=== PATIENT | female | born 1990 | race American Indian/Alaskan Native ===

== ENCOUNTER 2017-01-28 12:45 | Emergency (ER) | payer SELFPAY ==
[2017-01-28 13:51] VITALS: BP 154/93
--- NOTE | 2017-01-28 15:41 | Emergency Department Report ---
Entered by SPENSER ACE, acting as scribe for MARK KRISHNAN PA. ED Eye Problem HPI - General Chief complaint: Eye Problems Stated complaint: LT EYE RED Time Seen by Provider: 01/28/17 15:09 Source: patient Mode of arrival: Ambulatory Limitations: No Limitations - History of Present Illness Initial comments: 26 y/o female patient presents today with eye redness/ irritation that started 2 days ago. Associated Sx include eye itching that started 2 weeks ago, green drainage x2 days, mild eye blurriness but pt denies eye pain, fever, N/V, abd pain and chest pain. Pt notes having seasonal allergies. She also has a positive sick contact, a co-worker that acquired pink eye last week. MD chief complaint: eye redness -: days(s) (2) Onset Description: gradual Location: both eyes Place: work (potentially acquired disease from work) If Injury: none Eye Symptoms: redness (green), itching, discharge Severity: mild Consistency: constant Associated Symptoms: denies: nausea/vomiting, fever Treatments Prior to Arrival: other (benadryl) - Related Data Previous Rx's Medication Instructions Recorded Last Taken Type Cetirizine HCl [ZyrTEC] 10 mg PO QDAY #30 capsule 01/28/17 Unknown Rx Fluticasone [Flonase] 1 spray NS QDAY #1 bottle 01/28/17 Unknown Rx Levofloxacin [levofloxacin OPTH] 1 - 2 drop OP Q2HWA #1 bottle 01/28/17 Unknown Rx Allergies Allergy/AdvReac Type Severity Reaction Status Date / Time codeine Allergy Nausea Verified 01/28/17 13:44 ED Review of Systems Comment: All other systems reviewed and negative Constitutional: denies: chills, fever Eyes: eye discharge (green), vision change (vision is mildly affected ). denies : eye pain Respiratory: denies: cough, shortness of breath Cardiovascular: denies: chest pain Gastrointestinal: denies: abdominal pain, nausea, vomiting ED Past Medical Hx - Past Medical History Previous Medical History?: Yes Additional medical history: Allergies, Bronchitis - Surgical History Past Surgical History?: Yes Additional Surgical History: Left shoulder, [place] teeth - Social History Smoking Status: Never Smoker Substance Use Type: None - Medications Home Medications: Home Medications Medication Instructions Recorded Confirmed Last Taken Type Cetirizine HCl [ZyrTEC] 10 mg PO QDAY #30 capsule 01/28/17 Unknown Rx Fluticasone [Flonase] 1 spray NS QDAY #1 bottle 01/28/17 Unknown Rx Levofloxacin [levofloxacin OPTH] 1 - 2 drop OP Q2HWA #1 bottle 01/28/17 Unknown Rx ED Physical Exam - General Limitations: No Limitations - Other Other exam information: GENERAL: The patient is well-developed and well-nourished. Patient is in NAD. HEAD: Normocephalic. Atraumatic. EYES: Extraocular motions are intact, PERRL. Bilateral conjuctival injection noted, minimal left eyelid edema, clear drainage noted bilaterally. EARS: TM clear bilaterally. NOSE: Normal nasal mucosa, positive for clear drainage. THROAT: No swelling, edema or exudates. NECK: Supple, nontender, without lymphadenopathy. CHEST/LUNGS: Clear to auscultation throughout. HEART/CARDIOVASCULAR: Regular rate and rhythm. No murmurs, rubs or gallops. ABDOMEN: Abdomen is soft, nontender. Bowel sounds normoactive. No guarding or rebound tenderness. EXTREMITIES: Peripheral pulses intact. Capillary refill less than 2 seconds. NEURO: Alert and oriented x 3. Normal gait. CN II-XII intact. Symmetrical strength and sensation. Reflexes 2+ throughout. Cerebellar testing normal. GCS score of 15. ED Course Vital Signs 01/28/17 13:45 Temperature 98.9 F Pulse Rate 90 Respiratory 18 Rate Blood Pressure 154/93 O2 Sat by Pulse 100 Oximetry ED Medical Decision Making - Lab Data Vital Signs 01/28/17 13:45 Temperature 98.9 F Pulse Rate 90 Respiratory 18 Rate Blood Pressure 154/93 O2 Sat by Pulse 100 Oximetry - Medical Decision Making 26 y/o female patient presents today with eye redness/ irritation that started 2 days ago. Patient is in no acute distress at this time. She will be discharged home and is encouraged to follow up with a primary care provider. She will be sent home on levofloxacin optic drops, Flonase and Zyrtec and is encouraged to return to the emergency room for any worsening symptoms. ED Disposition Clinical Impression: Conjunctivitis Qualifiers: Conjunctivitis type: acute Acute conjunctivitis type: unspecified Laterality: bilateral Qualified Code(s): H10.33 - Unspecified acute conjunctivitis, bilateral Allergic rhinitis Qualifiers: Allergic rhinitis seasonality: seasonal Allergic rhinitis trigger: unspecified Qualified Code(s): J30.2 - Other seasonal allergic rhinitis Disposition: DISCHARGED TO HOME OR SELFCARE Is pt being admited?: No Does the pt Need Aspirin: No Condition: Stable Instructions: Conjunctivitis (ED), Allergic Rhinitis (ED) Additional Instructions: Follow-up with primary care provider. Return to the emergency department if symptoms worsen. Prescriptions: Levofloxacin [levofloxacin OPTH] 1 - 2 drop OP Q2HWA #1 bottle Cetirizine HCl [ZyrTEC] 10 mg PO QDAY #30 capsule Fluticasone [Flonase] 1 spray NS QDAY #1 bottle Referrals: PRIMARY CAREMD [Primary Care Provider] - 3-5 Days CHUY PAVON MD [Staff Physician] - 3-[facility] - [facility] Days Forms: Work/School Release Form(ED) Time of Disposition: 15:40 This documentation as recorded by the MALKA carrasquillo RYAN,accurately reflects the service I personally performed and the decisions made by ARIELLA angulo NATASHA, PA.
== END 2017-01-28 16:12 | disposition home or self-care (01) ==
LOC: ED 12:45
DX: H10.33 Unspecified acute conjunctivitis, bilateral (principal); J30.2 Other seasonal allergic rhinitis
CPT/HCPCS: 99283

== ENCOUNTER 2017-11-19 04:24 | Emergency (ER) | payer SELFPAY ==
[2017-11-19] MEDS ORDERED: MOTRIN PO ONE (06:19)
[2017-11-19 07:09] LABS: Bacteria,Urine 1+ /HPF (Negative); Bilirubin,Urine SM (Negative); Blood,Urine NEG (Negative); Color,Urine Amber (Yellow); HCG Qualitative,Urine Negative (Negative); Mucus,Urine 3+ /HPF; Nitrite,Urine NEG (Negative)
[2017-11-19 07:13] LABS: Ictotest,Urine Negative (Negative)
[2017-11-19] MEDS ORDERED: DECADRON IV ONE (08:29)
[2017-11-19] MEDS ORDERED: BACTRIM DS PO ONE (08:29)
--- NOTE | 2017-11-19 08:33 | XRay Report ---
FINAL REPORT EXAM: XR CHEST ROUTINE 2V HISTORY: cough and fever TECHNIQUE: PA and lateral chest radiographs PRIORS: None. FINDINGS: No mediastinal shift. Cardiac silhouette is not enlarged. No pneumothorax, effusion, or focal pulmonary opacity. No acute skeletal finding. IMPRESSION: No focal pulmonary opacity.
--- NOTE | 2017-11-19 08:36 | Emergency Department Report ---
HPI - General Chief Complaint: Upper Respiratory Infection Time Seen by Provider: 11/19/17 08:12 - HPI HPI: This is a 27-year-old female presents to the emergency department with a complaint of a cough, chest congestion and a fever. It started about 5 days ago. The patient has not taken anything for her symptoms had visitation. She says that the cough is productive and she is bringing up thick mucus. She denies any past medical history and is not a smoker. She currently lives in [place] but is transitioning to [place] and therefore does not have any local primary care physicians. No sick contacts at home. She denies any ear pain, sore throat, rash, dysuria. ED Past Medical Hx - Past Medical History Previous Medical History?: No Additional medical history: Obesity, Bronchitis - Surgical History Additional Surgical History: Left shoulder, - Social History Smoking Status: Never Smoker Substance Use Type: None - Medications Home Medications: Home Medications Medication Instructions Recorded Confirmed Last Taken Type Cetirizine HCl [ZyrTEC] 10 mg PO QDAY #30 capsule 01/28/17 Unknown Rx Fluticasone [Flonase] 1 spray NS QDAY #1 bottle 01/28/17 Unknown Rx Levofloxacin [levofloxacin OPTH] 1 - 2 drop OP Q2HWA #1 bottle 01/28/17 Unknown Rx ALBUTEROL Inhaler [ProAir HFA 2 puff IH QID PRN #1 inhalation 11/19/17 Unknown Rx Inhaler] Benzonatate [Tessalon Perles] 100 mg PO Q8HR PRN #20 capsule 11/19/17 Unknown Rx Sulfamethoxazole/Trimethoprim 1 each PO BID #10 tablet 11/19/17 Unknown Rx [Bactrim DS TAB] ED Review of Systems ROS: Stated complaint: COUGH, FEVER,CHEST CONGESTION Other details as noted in HPI Comment: All other systems reviewed and negative Constitutional: chills, fever Eyes: denies: eye pain, eye discharge, vision change ENT: denies: ear pain, throat pain Respiratory: cough. denies: shortness of breath Cardiovascular: denies: chest pain, palpitations Gastrointestinal: denies: abdominal pain, nausea, diarrhea Genitourinary: denies: urgency, dysuria, discharge Musculoskeletal: denies: back pain, joint swelling, arthralgia Skin: denies: rash, lesions Neurological: denies: headache, weakness, paresthesias Physical Exam - Physical Exam Vital Signs: Vital Signs 11/19/17 11/19/17 05:44 06:11 Temperature 99.6 F 99.6 F Pulse Rate 108 H 111 H Respiratory 18 16 Rate Blood Pressure 135/83 135/83 O2 Sat by Pulse 94 98 Oximetry Physical Exam: GENERAL: The patient is well-developed well-nourished. HENT: Normocephalic. Atraumatic. Patient has moist mucous membranes. EYES: Extraocular motions are intact. Pupils equal reactive to light bilaterally. NECK: Supple. Trachea is midline. CHEST/LUNGS: Clear to auscultation. A productive sounding cough with a slight wheeze to it as her during examination. No tachypnea or accessory muscle use. There is no respiratory distress noted. HEART/CARDIOVASCULAR: Regular. There is no tachycardia. There is no murmur. ABDOMEN: Abdomen is soft, nontender. Patient has normal bowel sounds. Obese habitus. SKIN: Skin is warm and dry. NEURO: The patient is awake, alert, and oriented. The patient is cooperative. The patient has no focal neurologic deficits. The patient has normal speech. MUSCULOSKELETAL: There is no tenderness or deformity. There is no limitation range of motion. There is no evidence of acute injury. ED Course Vital Signs 11/19/17 11/19/17 05:44 06:11 Temperature 99.6 F 99.6 F Pulse Rate 108 H 111 H Respiratory 18 16 Rate Blood Pressure 135/83 135/83 O2 Sat by Pulse 94 98 Oximetry ED Medical Decision Making - Radiology Data Radiology results: image reviewed interpreted by me: Chest x-ray does not show any acute process. There are no pleural effusions, obvious pneumonia and there is no pneumothorax. - Medical Decision Making Patient presents with a five-day history of cough, chest congestion and fever. She does not appear to be in any distress. Chest x-ray does not show any obvious pneumonia although there might be a developing infiltrate or opacity to the right lower lung. She has positive for influenza but we will not treat with Tamiflu as her symptoms started about 5 days ago and therefore she is outside of the window that this is indicated for treatment. Urinalysis may not be the cleanest sample but does show some white blood cells with small amount of leukocyte esterase. Therefore the patient will be treated with some Bactrim. She was given albuterol and Tessalon Perles for home and one dose of Decadron here. She was given multiple referrals for primary care. She will return to the ER with any worsening of her symptoms or any acute distress. Vital signs stable throughout ED course. - Differential Diagnosis influenza, pneumonia, URI, UTI Critical Care Time: No Critical care attestation.: If time is entered above; I have spent that time in minutes in the direct care of this critically ill patient, excluding procedure time. ED Disposition Clinical Impression: Influenza A Fever Qualifiers: Fever type: unspecified Qualified Code(s): R50.9 - Fever, unspecified UTI (urinary tract infection) Qualifiers: Urinary tract infection type: acute cystitis Hematuria presence: without hematuria Qualified Code(s): N30.00 - Acute cystitis without hematuria Disposition: TO HOME OR SELFCARE Is pt being admited?: No Condition: Stable Instructions: Urinary Tract Infection in Women (ED), Fever in Adults (ED), Influenza (ED) Additional Instructions: Please follow up with a primary care physician in the next few days. Return to the emergency Department with any worsening of your symptoms or any acute distress. You can take Tylenol every 4 hours and ibuprofen every 6 hours, using weight-based dosing, as needed for fever or discomfort. Prescriptions: ALBUTEROL Inhaler [ProAir HFA Inhaler] 2 puff IH QID PRN #1 inhalation PRN Reason: Shortness Of Breath Benzonatate [Tessalon Perles] 100 mg PO Q8HR PRN #20 capsule PRN Reason: Cough Sulfamethoxazole/Trimethoprim [Bactrim DS TAB] 1 each PO BID #10 tablet Referrals: MICHELE POWERS JR, MD [Staff Physician] - 3-5 Days [facility] [Outside] - 3-5 Days Forms: Work/School Release Form(ED) Time of Disposition: 08:36
[2017-11-19 08:55] VITALS: BP 131/85
== END 2017-11-19 08:54 | disposition home or self-care (01) ==
LOC: ED 04:24
DX: N39.0 Urinary tract infection, site not specified (principal); J11.1 Influenza due to unidentified influenza virus with other respiratory manifestations
CPT/HCPCS: 71046; 81001; 81025; 87400; 96374; 99284; J1100